=== PATIENT | female | born 1950 | race Caucasian/White ===

== ENCOUNTER → 2016-04-24 | Outpatient (CLI) | payer OTHER, BC ==
[2016-04-24 09:27] LABS: BILIRUBIN,URINE NEGATIVE (NEG); CLARITY,URINE Slightly Clo (CLEAR); GLUCOSE, URINE (UA) NEGATIVE (NEG); LEUKOCYTE ESTERASE ,URINE NEGATIVE (NEG); NITRATE,URINE POSITIVE (NEG); OCCULT BLOOD,URINE NEGATIVE (NEG); PH,URINE 5.5 (5.0-8.5); PROTEIN,URINE TRACE mg/dl (NEG); UROBILINOGEN,URINE 0.2 EU/dL (0.2)
[2016-04-24 09:32] LABS: URINE SAMPLE TYPE CLEAN CATCH URINE
[2016-04-24 09:33] LABS: BACTERIA,URINE MANY; RBC,URINE 0 /hpf
[2016-04-24 09:53] LABS: FREE T3 5.19 PG/ML (2.77-5.27); FREE T4 (FREE THYROXINE) 0.84 ng/dL (0.93-1.71)
== END ==
LOC: LAB 08:36
PROVIDERS: ATTEND Internal Medicine
DX: E03.9 Hypothyroidism, unspecified (principal); R53.83 Other fatigue; R82.99 Other abnormal findings in urine
CPT/HCPCS: 36415; 81001; 81003; 84439; 84443; 84481; 87077; 87088; 87186

== ENCOUNTER → 2016-06-21 | Outpatient (CLI) | payer OTHER, BC ==
[2016-06-21 16:27] LABS: FREE T4 (FREE THYROXINE) 1.09 ng/dL (0.93-1.71)
== END ==
LOC: MOB LAB 14:31
PROVIDERS: ATTEND Nurse Practitioner Family
DX: E03.9 Hypothyroidism, unspecified (principal)
CPT/HCPCS: 36415; 84439; 84443; 99214

== ENCOUNTER → 2016-08-23 | Outpatient (CLI) | payer OTHER, BC ==
[2016-08-23 10:01] LABS: FREE T4 (FREE THYROXINE) 1.16 ng/dL (0.93-1.71)
== END ==
LOC: LAB 08:15
PROVIDERS: ATTEND Nurse Practitioner Family
DX: E03.9 Hypothyroidism, unspecified (principal)
CPT/HCPCS: 36415; 84439; 84443

== ENCOUNTER → 2016-10-21 | Outpatient (CLI) | payer OTHER, BC ==
[2016-10-21 09:53] LABS: BILIRUBIN,URINE NEGATIVE (NEG); CLARITY,URINE CLEAR (CLEAR); COLOR,URINE YELLOW; GLUCOSE, URINE (UA) NEGATIVE (NEG); NITRATE,URINE NEGATIVE (NEG); OCCULT BLOOD,URINE Trace-intact (NEG); PH,URINE 5.5 (5.0-8.5); PROTEIN,URINE NEGATIVE (NEG); UROBILINOGEN,URINE 0.2 EU/dL (0.2)
[2016-10-21 10:02] LABS: BACTERIA,URINE FEW; RBC,URINE 0-3 /hpf; URINE SAMPLE TYPE CLEAN CATCH URINE; WBC,URINE 35-40
== END ==
LOC: LAB 09:25
PROVIDERS: ATTEND Nurse Practitioner Family
DX: E03.9 Hypothyroidism, unspecified (principal); R30.0 Dysuria; R30.9 Painful micturition, unspecified; R82.99 Other abnormal findings in urine
CPT/HCPCS: 36415; 81001; 84443; 87077; 87088; 87186